=== PATIENT | female | born 1990 | race Caucasian/White ===

== ENCOUNTER 2020-01-12 20:40 | Emergency (ER) | payer BC ==
[~2020-01-12] VITALS: Ht 157.5 cm; Wt 90.7 kg
[2020-01-12 20:45] VITALS: BP 130/99
--- NOTE | 2020-01-12 20:45 | NUR ---
TO BED # 07 AMBULATORY
--- NOTE | 2020-01-12 20:57 | NUR ---
PT TAKEN TO BED 1
--- NOTE | 2020-01-12 21:01 | NUR ---
Dr. Brownlee examining patient.
[2020-01-12] MEDS ORDERED: NACL 0.9% 1,000 ML IV ONE (21:15)
--- NOTE | 2020-01-12 21:16 | NUR ---
29 YEAR OLD FEMALE COMPLAINS OF DIZZINESS, HEADACHE, AND NUMBNESS X 1 WEEK. PATIENT STATES SYMPTOMS STARTED WHEN SHE STARTED NEW JOB. PATIENT AOX4, BREATHING EVEN AND UNLABORED, SKIN WARM AND DRY. BED IN LOWEST POSITION, LOCKED, BED RAIL UPX1. MOTHER AT BEDSIDE PMH - DENIES ALLERGIES - NKA
--- NOTE | 2020-01-12 21:40 | NUR ---
PT WENT TO CT
[2020-01-12 21:51] LABS: BASOPHILS # (AUTO) 0.1 K/uL (0.00-0.22); BASOPHILS % (AUTO) 0.6 % (0.0-2.0); EOSINOPHILS # (AUTO) 0.1 K/uL (0-0.4); HEMATOCRIT 40.2 % (36-48); LYMPHOCYTES # (AUTO) 2.4 K/uL (2.5-16.5); LYMPHOCYTES % (AUTO) 23.6 % (20.5-51.1); MEAN CORPUSCULAR HEMOGLOBIN 32 pg (27-31); MEAN CORPUSCULAR HGB CONC 35 g/dL (33-37); MEAN CORPUSCULAR VOLUME 90.9 fL (80-94); MONOCYTES # (AUTO) 0.4 K/uL (0.8-1.0); MONOCYTES % (AUTO) 3.7 % (1.7-9.3); NEUTROPHILS # (AUTO) 7.3 K/uL (1.8-7.7); NEUTROPHILS % (AUTO) 71.1 % (42.2-75.2); PLATELET COUNT (AUTO) 363 K/uL (140-450); RED BLOOD CELL COUNT(AUTO) 4.43 MIL/uL (4.20-5.40); RED CELL DISTRIBUTION WIDTH 12.7 % (11.6-13.7); WHITE BLOOD COUNT (AUTO) 10.2 K/uL (4.8-10.8)
[2020-01-12 22:13] LABS: ALBUMIN 4.1 g/dL (3.4-5.0); ANION GAP 11.2 (8-16); CARBON DIOXIDE 28.2 mmol/L (21-32); POTASSIUM 3.4 mmol/L (3.5-5.1); TOTAL BILIRUBIN 0.3 mg/dL (0.0-1.0)
[2020-01-12] MEDS ORDERED: MECLIZINE 25 MG TAB PO ONE (22:35)
[2020-01-12 22:40] VITALS: BP 131/72
--- NOTE | 2020-01-12 22:40 | NUR ---
Patient discharged with v/s stable. Written and verbal after care instructions about hyperventilation given and explained. Patient alert, oriented and verbalized understanding of instructions. Ambulatory with steady gait. All questions addressed prior to discharge. ID band removed. Patient advised to follow up with PMD. Rx of meclizine given. Patient educated on indication of medication including possible reaction and side effects. Opportunity to ask questions provided and answered.
== END 2020-01-12 22:40 | disposition home or self-care (01) ==
LOC: MED 20:40
DX: R06.4 Hyperventilation (principal); I10 Essential (primary) hypertension; R42 Dizziness and giddiness
CPT/HCPCS: 36415; 70450; 71045; 80053; 81002; 81025; 85025; 93005; 96360; 99285; J7030; Q0092